=== PATIENT | female | born 1990 | race African-American/Black ===

== ENCOUNTER 2019-06-15 08:01 | Inpatient (IN) | payer OTHER ==
[2019-06-15] MEDS ORDERED: hydrALAZINE 20 MG/ML VIAL ONE (08:23)
[2019-06-15] MEDS ORDERED: hydrALAZINE 20 MG/ML VIAL SLOW IVP PRN (08:25)
[2019-06-15] MEDS ORDERED: Promethazine HCl 25 MG/ML VIAL IM PRN ×2 (08:25→11:11)
[2019-06-15] MEDS ORDERED: Butorphanol Tartrate 1 MG/ML VIAL SLOW IVP PRN (08:25)
[2019-06-15] MEDS ORDERED: Ondansetron PF 4 MG/2 ML Vial IVP PRN ×2 (08:25→11:11)
[2019-06-15] MEDS ORDERED: Calcium Gluc 4.6 MEQ/10 ML (100 MG/ML) SLOW IVP PRN (08:25)
[2019-06-15] MEDS ORDERED: Magnesium Sulfate 20 GM/WATER 500 ML BAG IVPB SCH (08:30)
[2019-06-15] MEDS ORDERED: Lactated Ringer's 1,000 ML IV SCH (08:30)
--- NOTE | 2019-06-15 08:36 | PDOC.LDHP ---
Labor and Delivery H&P Chief complaint: contractions HPI: 29 yo BF transferred from [place] with elevated BP, tx. with Apresoline prior to transfer. PNC x 4 visits in [place], only 4 visits total. Denies SROM or bleeding. Current gestational age (weeks): 39 Due date: 06/20/18 Dating criteria: second trimester ultrasound Grav: 2 Para: 1 OB History Details: Past OB hx. c/w C?s at 32 weeks for PIH. Current complications: other (PNC as above) Abnormal US findings: No Past Medical History: HTN when Current medications: pre- vitamins Previous surgical history: other (unknown C/S scar, ACL) Allergies/Adverse Reactions: Allergies Allergy/AdvReac Type Severity Reaction Status Date / Time No Known Allergies Allergy Unverified 03/02/13 09:48 - Physical Exam Abnormal vital signs: 190/106 General: NAD Heart: RRR Lungs: CTAB Abdomen: gravid Extremeties: trace edema FHT: category 1 Harris contractions every: UCs q 5-7 mins - OB Labs Blood type: unknown RH: unknown Antibody Screen: unknown GBS: unknown - Assessment L&D Assessment: term patient in labor (limited PNC) - Plan Plan: admit to L&D, magnesium for seizure prophylaxis, other (Will obtain USG for EFW Apresoline/Labetalol for BP control May require delivery)
[2019-06-15] MEDS: Lactated Ringer's 1,000 ML IV SCH (08:48)
[2019-06-15] MEDS: Labetalol HCl 100 MG/20 ML VIAL SLOW IVP SCH ×3 (09:00→14:13)
[2019-06-15 09:11] LABS: Amphetamine Detected (NotDetected); Cocaine Metabolite Screen Not Detected (NotDetected); Medtox Reader # READER 1; Methamphetamine Detected (NotDetected); Opiate Screen Not Detected (NotDetected); Phencyclidine (PCP) Not Detected (NotDetected); THC/Cannabinoid Screen Detected (NotDetected)
[2019-06-15 09:12] LABS: Barbiturates Screen Not Detected (NotDetected); Benzodiazepine Screen Not Detected (NotDetected); Medtox Control Line Valid? VALID (VALID); Methadone Not Detected (NotDetected); Oxycodone Screen Not Detected (NotDetected); Tricyclic Screen Not Detected (NotDetected)
[2019-06-15] MEDS ORDERED: Ondansetron PF 4 MG/2 ML Vial ONE (09:23)
[2019-06-15] MEDS ORDERED: Metoclopramide HCl 10 MG/2 ML VIAL ONE (09:23)
[2019-06-15] MEDS ORDERED: Oxytocin 10 UNITS/ML VIAL ONE (09:23)
[2019-06-15] MEDS ORDERED: Fentanyl 100 MCG/2 ML VIAL ONE (09:23)
[2019-06-15] MEDS ORDERED: PHENYLEPHRINE-NS 100 MCG/ML 10 ML SYRINGE ONE (09:23)
[2019-06-15] MEDS ORDERED: MORPHINE 5 MG/10 ML PF VIAL ONE (09:23)
[2019-06-15 09:48] VITALS: BMI 27.1
[2019-06-15 09:58] LABS: HBSAB Concentration 271.02 mIU/mL; Hep B Surf AB Reactive (NonReactive)
[2019-06-15 10:03] LABS: Syphilis Antibody Nonreactive (Nonreactive); Syphilis Antibody Index 0.04 S/CO (<1.00 Non-Reactive)
--- NOTE | 2019-06-15 10:16 | ULT ---
LIMITED OBSTETRICAL ULTRASOUND: HISTORY: History of term IUP with limited care. FINDINGS: Limited images demonstrate a live intrauterine gestation in vertex presentation. Placenta is anterior in location without overt evidence of previa. The KASIA is markedly diminished. The average gestational age by ultrasound based on biometrics is 34 weeks 1 day with an estimat ed due date of 07/26/2019. Clinical age is 39 weeks 2 days. Estimated due date is 06/20/2019. Estimated weight is 5 lbs 2 oz, plus or minus 12 oz (2333 g, plus or minus 345 g). Biparietal diameter is 8.66 cm, giving an estimated gestational age of 35 weeks 0 days. Head circumference is 29.87 cm, giving an estimated gestational age of 33 weeks 1 day. Abdominal circumference is 29.74 cm, giving an estimated gestational age of 33 weeks 5 days. Femoral length was 6.74 cm, giving an estimated gestational age of 34 weeks 5 days. IMPRESSION: 1. Single live intrauterine gestation. 2. Size and dates as above. 3. Oligohydramnios. 4. Dr. Garcia was bedside during the examination with findings reported by the fuel technician. POS: TPC
[2019-06-15 10:17] LABS: Bilirubin Negative (Negative); Blood, Urine 1+ (Negative); Clarity Turbid (Clear); Glucose, Urine (Dipstick) Normal (Negative); Leukocyte 75 Leu/uL (Negative); Nitrite Negative (Negative); Protein, Urine (Dipstick) 100 mg/dL (Neg-Trace); RBC/HPF 0-3 HPF (0-3); Urobilinogen Normal mg/dL (Less than 2); WBC/HPF 0-3 HPF (0-3)
[2019-06-15 10:32] LABS: Bacteria/HPF 1+ HPF (None Seen)
[2019-06-15 10:44] LABS: Analyzer IN Cardio OR; Base Excess (BEa) -3.2 mEq/L (-2.0 to +3.0)
[2019-06-15] MEDS ORDERED: Atropine Sulfate 0.4 mg/1 ml Vial ONE (10:49)
[2019-06-15] MEDS: Magnesium Sulfate 20 GM in Dextrose 5% in Water 460 ML IV SCH ×2 (11:00→17:33)
[2019-06-15] MEDS ORDERED: Misoprostol 200 MCG TAB PR PRN (11:01)
[2019-06-15] MEDS ORDERED: Lanolin Ointment 7 GM TUBE TOP PRN (11:01)
[2019-06-15] MEDS ORDERED: Bisacodyl 10 MG SUPP PR PRN (11:01)
[2019-06-15] MEDS ORDERED: L&D-Morphine 4 MG/ML VIAL SLOW IVP PRN (11:11)
[2019-06-15] MEDS ORDERED: diphenhydrAMINE 50 MG/ML VIAL IVP PRN (11:11)
[2019-06-15] MEDS ORDERED: Ketorolac Tromethamine 30 MG/ML VIAL IVP PRN (11:11)
[2019-06-15] MEDS ORDERED: Promethazine HCl 25 MG SUPP PR PRN (11:11)
[2019-06-15] MEDS ORDERED: HYDROmorphone 2 MG/ML VIAL SLOW IVP PRN (11:11)
[2019-06-15] MEDS ORDERED: Naloxone HCl 0.4 mg/ml Vial IV PRN (11:11)
[2019-06-15] MEDS ORDERED: Naloxone HCl 0.4 mg/ml Vial IVP PRN ×2 (11:11)
[2019-06-15] MEDS ORDERED: Meperidine HCl/PF 25 MG/ML VIAL SLOW IVP PRN (11:11)
[2019-06-15] MEDS ORDERED: Ondansetron HCl/PF 4 MG/2 ML Vial IVP PRN (11:11)
[2019-06-15] MEDS ORDERED: Communication Order-Pharmacy FS SCH (11:15)
[2019-06-15] MEDS ORDERED: Ketorolac Tromethamine 30 MG/ML VIAL IVP SCH (11:15)
[2019-06-15] MEDS ORDERED: NS / Oxytocin 40 units/1000ml 1,000 ML ONE (12:23)
--- NOTE | 2019-06-15 13:55 | OP ---
DATE OF PROCEDURE: 06/15/2019 SURGEON: Chencho Garcia MD COMPENSATION ADJUSTER SURGEON: Liliana Martines MD PREOPERATIVE DIAGNOSES: 1. Term intrauterine . 2. Severe preeclampsia with oligohydramnios. 3. Previous section. 4. Positive urine drug screen. POSTOPERATIVE DIAGNOSES: 1. Term intrauterine . 2. Severe preeclampsia with oligohydramnios. 3. Previous section. 4. Positive urine drug screen. PROCEDURE PERFORMED: Repeat low-segment transverse section via Pfannenstiel incision. PROPHYLAXIS: 2 g Ancef prior to incision. ESTIMATED BLOOD LOSS: 600 mL. QBL pending. COMPLICATIONS: None. FINDINGS: 1. Viable male , weight 5 pounds 4 ounces. Apgars 8 and 9, found in the cephalic presentation. 2. Normal uterus, tubes, and ovaries noted. TECHNIQUE IN DETAIL: After good spinal anesthesia was achieved, the patient was prepped and draped in usual sterile fashion in the supine position with leftward tilt. A transverse incision was made above the symphysis pubis in the area of a previous scar and the abdomen was entered in layers. The uterus was identified , and a bladder flap was created in the peritoneum. A transverse incision was made across the lower uterine segment and was extended bluntly. The fetus was found in the cephalic presentation and was delivered. No amniotic fluid was seen. The cord was clamped and cut, and the baby was handed to the waiting pediatric team. Cord gases and cord blood were then obtained. The placenta was manually removed and the inside of the uterus was curetted with a dry lap. The uterine incision was closed using a running locking suture of Monocryl. Good hemostasis was noted with single-layer closure. The uterus was replaced in the abdominal cavity and the pelvic gutters were cleared of all clots and debris. The uterus was replaced in the abdominal cavity and the incision was again reviewed and noted to be hemostatic. The rectus muscles were made dry using Bovie coagulation technique and the fascia was closed using 2 sutures of PDS, brought laterally to the midline in an alternating running locking fashion. The subcutaneous tissue was thoroughly irrigated and made dry using Bovie coagulation technique. The skin was closed with metal brendon. Sponge, lap, and needle counts were correct. The patient tolerated the procedure well and was taken to the recovery room in good condition. Job ID: [id number] [facility]
[2019-06-15 14:45] LABS: HBSAg Index 0.15 S/CO (0-0.99); Hep B Surf Ag Non-Reactive S/CO (NonReactive)
[2019-06-15] MEDS ORDERED: Ketorolac Tromethamine 30 MG/ML VIAL ONE (15:28)
[2019-06-15] MEDS: Ibuprofen 800 MG TAB PO SCH (18:04)
[2019-06-16] MEDS: hydrALAZINE 20 MG/ML VIAL SLOW IVP PRN ×2 (00:48→00:49)
--- NOTE | 2019-06-16 01:14 | PDOC.PP ---
Post Progress Note Post Day #: POD1 Subjective: Denies CONNOLLY or blurry vision. Elevated BPs tx. with Apresline x2. PO intake tolerated: yes Flatus: no Ambulation: no Vital Signs (12 hours) Temp Pulse 06/16/19 00:48 55 L 06/15/19 16:00 98.2 F 06/15/19 15:59 55 L 06/15/19 14:13 55 L Weight Weight 83.461 kg - Physical Examination General: NAD Respiratory: non-labored breathing Abdominal: no distention Skin: CS incision dry & intact Psychiatric: normal affect Additional Labs: Post Labs Blood Type O POSITIVE 06/15/19 09:52 Hep Bs Antigen Non-Reactive S/CO (NonReactive) 06/15/19 09:00 - Assessment/Plan Cont. Mg x 24 hrs delivered. Will add Procardia 30 mg XL now and observe.
[2019-06-16] MEDS ORDERED: NIFEdipine XL 30 MG TAB PO SCH (01:30)
[2019-06-16] MEDS: Labetalol HCl 100 MG/20 ML VIAL SLOW IVP SCH (02:55)
[2019-06-16] MEDS: Magnesium Sulfate 20 GM in Dextrose 5% in Water 460 ML IV SCH (04:50)
[2019-06-16 07:43] LABS: Hemoglobin 12.7 g/dL (12.0-16.0); Mean Corpuscular HGB CONC 32.9 g/dL (32.0-36.0); Mean Corpuscular Hemoglobin 26.3 pg (27.0-31.0); Mean Platelet Volume 10.4 fL (7.4-10.4); Platelet Count 173 thou/uL (130-400); RBC Distribution Width 13.9 % (11.5-14.5); Red Blood Cell (RBC) Count 4.84 mill/uL (4.20-5.40)
[2019-06-16] MEDS: Ibuprofen 800 MG TAB PO SCH ×4 (08:12→22:50)
[2019-06-16] MEDS ORDERED: Adacel (T-DAP) 0.5 ML SYRINGE IM ONE (09:00)
[2019-06-16] MEDS ORDERED: FLU VACC QS2019-20(6MOS UP)/PF 60 MCG/0.5 ML SYRINGE IM ONE (10:15)
[2019-06-16] MEDS: Lactated Ringer's 1,000 ML IV SCH ×3 (11:18→18:03)
[2019-06-16] MEDS: Docusate 100 MG CAP PO SCH ×3 (11:19→22:50)
[2019-06-16] MEDS: Ferrous Sulfate 325 MG TAB PO SCH (11:20)
[2019-06-16] MEDS: Polyethylene Glycol 3350 17 GM Packet PO SCH (11:21)
[2019-06-16] MEDS ORDERED: HYDROcodone/Acetaminophen 5/325 mg Tablet PO PRN (16:00)
[2019-06-16] MEDS: Prenatal Vitamin 1 TAB PO SCH (18:03)
[2019-06-17] MEDS: HYDROcodone/Acetaminophen 5/325 mg Tablet PO PRN ×2 (00:09→14:59)
[2019-06-17] MEDS: Lactated Ringer's 1,000 ML IV SCH ×3 (00:11→12:00)
--- NOTE | 2019-06-17 03:52 | PDOC.PP ---
Post Progress Note Post Day #: 2 Subjective: Denies headaches, vision changes. PO intake tolerated: yes Flatus: yes Ambulation: yes Vital Signs (12 hours) Temp Pulse Resp BP Pulse Ox 06/17/19 00:04 98.3 F 92 18 138/75 06/16/19 20:00 99.2 F 93 18 143/82 H 98 06/16/19 18:35 98.6 F 111 H 20 136/83 Weight Weight 83.461 kg - Physical Examination General: NAD Cardiovascular: no m/r/g, RRR Respiratory: clear to auscultation bilaterally, non-labored breathing Abdominal: appropriately TTP Skin: CS incision dry & intact Neurological: no gross focal deficits Psychiatric: A&Ox3 Result Diagrams: 06/16/19 07:33 Additional Labs: Post Labs Blood Type O POSITIVE 06/15/19 09:52 Hep Bs Antigen Non-Reactive S/CO (NonReactive) 06/15/19 09:00 Rubella IgG Antibody 3.79 index (Immune >0.99) 06/15/19 09:00 (1) Pre-eclampsia, severe Code(s): O14.10 - SEVERE PRE-ECLAMPSIA, UNSPECIFIED TRIMESTER Status: Acute (2) Oligohydramnios Code(s): O41.00X0 - OLIGOHYDRAMNIOS, UNSP TRIMESTER, NOT APPLICABLE OR UNSP Status: Acute (3) S/P section Code(s): Z98.891 - HISTORY OF UTERINE SCAR FROM PREVIOUS SURGERY Status: Acute (4) Amphetamine abuse Code(s): F15.10 - OTHER STIMULANT ABUSE, UNCOMPLICATED Status: Acute (5) Cocaine abuse Code(s): F14.10 - COCAINE ABUSE, UNCOMPLICATED Status: Acute (6) Marijuana abuse Code(s): F12.10 - CANNABIS ABUSE, UNCOMPLICATED Status: Acute - Assessment/Plan 29 yo s/p repeat LTCS 2/2 preE with severe bps, olihydramnios, and cocaine abuse /amphetamine abuse/marijuana abuse. POD2 1.)sIUP, delivered-via repeat CS. Continue routine care 2.)PreE with severe range blood pressures- bps 130s-140s/70-80s, however most recent 157/83. Off magnesium since 1600 on 06/16. Scheduled to get procardia this am. It does not look like she received procardia yesterday. Will continue to monitor bps closely for 24 hours off magnesium. 3.)Drug abuse-amphetamines, cocaine, and marijuana. CM/CPS consult pending. Dispo: continue to monitor bps today and await CM consult; consider d/c tomorrow. Cliff Calvert MD, PGY-3
[2019-06-17] MEDS: Ibuprofen 800 MG TAB PO SCH ×2 (06:25→15:00)
[2019-06-17] MEDS ORDERED: Sodium Chloride 0.9% 10 ML ONE (08:59)
[2019-06-17] MEDS: hydrALAZINE 20 MG/ML VIAL SLOW IVP PRN (09:04)
[2019-06-17] MEDS: NIFEdipine XL 30 MG TAB PO SCH ×2 (09:05→09:09)
[2019-06-17] MEDS: Ferrous Sulfate 325 MG TAB PO SCH (09:06)
[2019-06-17] MEDS: Docusate 100 MG CAP PO SCH (09:07)
[2019-06-17] MEDS: Polyethylene Glycol 3350 17 GM Packet PO SCH (09:07)
[2019-06-17] MEDS: Prenatal Vitamin 1 TAB PO SCH (09:08)
--- NOTE | 2019-06-17 10:52 | PDOC.EVN ---
Event Note - Event Note Event Note: Just called by PP nurse...patients BP was 180/101. She has receivedapresoline earlier this AM To L&D for restart of Mag Sulfate; recheck PI labs. HX pos UTox
[2019-06-17] MEDS ORDERED: Calcium Gluconate 4.6 MEQ in Sodium Chloride 0.9% 100 ML IVPB SCH (10:53)
[2019-06-17 11:09] LABS: #Lymphocytes 1.8 thou/uL (1.20-3.40); #Monocytes 0.5 thou/uL (0.11-0.59); #Neutrophils 9.5 thou/uL (1.40-6.50); %Basophils 0.3 % (0.0-1.0); %Eosinophils 0.2 % (0.0-10.0); %Lymphocytes 15.4 % (21.0-51.0); %Monocytes 4.4 % (0.0-10.0); %Neutrophils 79.7 % (42.0-75.0); Hemoglobin 12.8 g/dL (12.0-16.0); Mean Corpuscular HGB CONC 33.1 g/dL (32.0-36.0); Mean Corpuscular Hemoglobin 26.7 pg (27.0-31.0); Mean Corpuscular Volume 80.4 fL (78.0-98.0); Mean Platelet Volume 9.7 fL (7.4-10.4); Platelet Count 164 thou/uL (130-400); RBC Distribution Width 14.2 % (11.5-14.5); Red Blood Cell (RBC) Count 4.82 mill/uL (4.20-5.40); White Blood Cell (WBC) Count 11.9 thou/uL (4.8-10.8)
[2019-06-17] MEDS ORDERED: Calcium Gluconate 4.6 MEQ in Sodium Chloride 0.9% 100 ML IVPB PRN (11:26)
[2019-06-17] MEDS ORDERED: Magnesium Sulfate 20 GM/WATER 500 ML BAG IVPB SCH (11:30)
[2019-06-17] MEDS ORDERED: Magnesium Sulfate 20 GM in Dextrose 5% in Water 460 ML IV SCH ×2 (11:32→11:51)
[2019-06-17 11:33] LABS: ALT (SGPT) 16 U/L (8-55); AST (SGOT) 23 U/L (5-34); Albumin 3.2 g/dL (3.5-5.0); Alkaline Phosphatase 208 U/L (40-110); Anion Gap 11 mmol/L (10-20); BUN (Urea Nitrogen) 6 mg/dL (7.0-18.7); Bilirubin, Total 0.4 mg/dL (0.2-1.2); Calc. Creatinine Clearance 165 mL/min (70-130); Calcium 9.4 mg/dL (7.8-10.44); Carbon Dioxide 22 mmol/L (22-29); Chloride 109 mmol/L (98-107); Estimated GFR-MDRD Greater than 90; Globulin 3.3 g/dL (2.4-3.5); Glucose 92 mg/dL (70-105); Magnesium 2.5 mg/dL (1.6-2.6); Protein, Total 6.5 g/dL (6.0-8.3); Sodium 138 mmol/L (136-145)
[2019-06-17] MEDS ORDERED: Labetalol HCl 100 MG/20 ML VIAL ONE (11:49)
--- NOTE | 2019-06-17 11:49 | PDOC.EVN ---
Event Note - Event Note Event Note: Patient now in APU1...BPs with systolic 160-170s. I have orderd Labetolol 20mg SIVP X 1 now
--- NOTE | 2019-06-17 11:51 | PDOC.EVN ---
Event Note - Event Note Event Note: CBC and CMP wnl
[2019-06-17] MEDS ORDERED: Labetalol HCl 100 MG/20 ML VIAL SLOW IVP SCH ×3 (12:00→23:59)
--- NOTE | 2019-06-17 14:58 | PDOC.EVN ---
Event Note - Event Note Event Note: I have seen patient at bedside. BP 160 systolic...ok for next labetolol IV dose at 40mg. Follow
--- NOTE | 2019-06-17 23:46 | PDOC.EVN ---
Event Note - Event Note Event Note: Patient in APU1...called for BP systolic of 160-170. I have ordered another 40mg labetolol: Total labetolol doses are 20/40 and now 40 again. We will change to hydralazine after this prn
[2019-06-18] MEDS: hydrALAZINE 20 MG/ML VIAL SLOW IVP PRN (04:05)
--- NOTE | 2019-06-18 06:36 | PDOC.PP ---
Post Progress Note Post Day #: 3 Subjective: fells well PO intake tolerated: yes Flatus: yes Ambulation: yes Weight Weight 184 lb Vitals reviewed in L&D system: had to receive apresoline this AM for systolic over 160-170 (10mg). - Physical Examination Abdominal: lochia, no distention, appropriately TTP Extremities: negative homans (B) Skin: CS incision dry & intact (brendon in use) Neurological: no gross focal deficits Psychiatric: A&Ox3, normal affect Result Diagrams: 06/17/19 11:00 06/17/19 11:00 Additional Labs: Post Labs Blood Type O POSITIVE 06/15/19 09:52 Hep Bs Antigen Non-Reactive S/CO (NonReactive) 06/15/19 09:00 Rubella IgG Antibody 3.79 index (Immune >0.99) 06/15/19 09:00 (1) Amphetamine abuse Code(s): F15.10 - OTHER STIMULANT ABUSE, UNCOMPLICATED Status: Acute (2) Pre-eclampsia, severe Code(s): O14.10 - SEVERE PRE-ECLAMPSIA, UNSPECIFIED TRIMESTER Status: Acute (3) S/P section Code(s): Z98.891 - HISTORY OF UTERINE SCAR FROM PREVIOUS SURGERY Status: Acute - Assessment/Plan 1. Pos UTox: Case management to follow up 2. Post CS-POD3 but still with BP elevations. Unclear if this is PreE or drug effect in system. 3. BPs: increase procardia this am from 30mg XL to 60mg po at 0900. Mag until 1300
[2019-06-18] MEDS: NIFEdipine XL 60 MG TAB PO SCH (07:35)
--- NOTE | 2019-06-18 09:52 | PDOC.EVN ---
Event Note - Event Note Event Note: POD3 Put back on Mg but remains with labile BPs despite multiple doses of Labetalol and Apresoline as well as Procardia XL. Will consult Medicine Hospitalist Service for BP control.
[2019-06-18] MEDS ORDERED: cloNIDine 0.1 MG TAB PO PRN ×2 (10:24→14:57)
[2019-06-18] MEDS ORDERED: hydrALAZINE 20 MG/ML VIAL SLOW IVP PRN ×2 (10:24→14:58)
--- NOTE | 2019-06-18 11:40 | CON ---
DATE OF CONSULTATION: PRIMARY CARE PHYSICIAN: Dr. Ricci. REASON FOR ADMISSION: delivery. REASON FOR CONSULTATION: Blood pressure management. HISTORY OF PRESENT ILLNESS: Ms. Emmanuel is a pleasant 29-year-old female, who has a history of hypertension during . This is her second delivery. She states that with her first baby, she did have hypertension during and had to stay in the hospital for 3 days post delivery due to an elevated blood pressure. She says that she was on blood pressure medication for about a month and then the prescription ran out, but she says she "didn't need the medication anymore." She says she has not been on blood pressure medications since then. She was admitted again for a delivery and post delivery, she has been hypertensive with blood pressures recorded as high as 190 systolic and since then it has been in the 160s and 170s. She has been placed on IV magnesium as well as labetalol p.r.n. She was also started on Procardia, which has since been increased from 30 to 60 mg. Her blood pressure is still running in the 160s and as a result, we were consulted to aid with blood pressure management. Currently, the patient says that she has had a little bit of a headache off and on, but denies any visual changes such as blurred vision or double vision. She denies any chest pain or shortness of breath. No nausea, no vomiting. She denies any lower extremity edema. REVIEW OF SYSTEMS: All systems are reviewed and are negative except for that mentioned in the history of present illness. PAST MEDICAL HISTORY: Significant for hypertension as well as hypertension in . ALLERGIES: LISINOPRIL. PAST SURGICAL HISTORY: She has had x2 and ACL repair on her right leg. SOCIAL HISTORY: She says she smokes about half-a-pack a day for the last 5 years. Denies any drug use. Denies any alcohol use. She is single and this is her second child. FAMILY HISTORY: Significant for hypertension in both parents as well as cancer and congestive heart failure. MEDICATIONS: Include vitamins. PHYSICAL EXAMINATION: GENERAL: She is alert and oriented. She appears to be in no acute distress. VITAL SIGNS: Blood pressure is 163/97, heart rate is in the 90s, respiratory rate of 16, and she is afebrile. HEENT: Pupils are equal, round, and reactive. Extraocular muscles are intact. Sclerae anicteric. Throat; no erythema, no exudates. NECK: No adenopathy. No bruits. LUNGS: Clear to auscultation. There is no wheezing, no rales, no rhonchi. CARDIOVASCULAR: She has a normal S1, S2. There is no S3 or S4. No murmurs, clicks, or rubs. ABDOMEN: Soft. She has some mild diffuse tenderness. There is no rebound, no guarding, no organomegaly. EXTREMITIES: There is no clubbing or cyanosis. No edema. No calf tenderness. No joint effusions. NEUROLOGIC: Grossly nonfocal. Muscle strength is 5/5 in both her upper and lower extremities. Cranial nerves 2 through 12 are intact. SKIN AND INTEGUMENT: No skin changes. No rash. LABORATORY DATA: She had blood work done on the and white blood cell count is 11.9, hemoglobin is 12.8, hematocrit is 38.8, and platelet count is 164. Sodium 138, potassium 4.0, chloride is 109, CO2 is 22, BUN is 6, creatinine 0.65, glucose is 92. Liver function tests are normal. AST is 23, ALT is 16, alkaline phosphatase is slightly elevated at 208. ASSESSMENT AND PLAN: This is a pleasant 29-year-old female, who is developing hypertension post . She has been refractory to magnesium as well as Procardia and hydralazine as needed. In discussion with the patient, she said labetalol orally has worked well for her in the past and given that she is relatively tachycardic, we will go ahead and switch her to scheduled labetalol starting at [address] her on hydralazine IV as needed as well as clonidine. We will continue the Procardia at 60 mg daily and monitor her, and then hopefully, her blood pressure will stabilize. We can titrate the labetalol up to 400 mg twice daily or even 3 times daily as needed. We will be happy to follow along with you. Job ID: [id number]
[2019-06-18] MEDS: Labetalol 100 MG TAB PO SCH ×2 (14:43→20:28)
[2019-06-18] MEDS: Ibuprofen 800 MG TAB PO SCH (14:45)
[2019-06-18] MEDS: HYDROcodone/Acetaminophen 5/325 mg Tablet PO PRN (19:38)
[2019-06-18] MEDS: Docusate 100 MG CAP PO SCH ×3 (20:28→20:30)
[2019-06-18] MEDS: Polyethylene Glycol 3350 17 GM Packet PO SCH (21:12)
[2019-06-18] MEDS: Ferrous Sulfate 325 MG TAB PO SCH (21:12)
--- NOTE | 2019-06-19 06:07 | PDOC.PP ---
Post Progress Note Post Day #: POD4 Subjective: No c/o this AM. PO intake tolerated: yes Flatus: yes Ambulation: yes Vital Signs (12 hours) Pulse BP 06/18/19 21:00 164/99 H 06/18/19 20:28 100 164/99 H Weight Weight 83.461 kg - Physical Examination General: NAD Respiratory: non-labored breathing Abdominal: no distention Psychiatric: normal affect Result Diagrams: 06/17/19 11:00 06/17/19 11:00 Additional Labs: Post Labs Blood Type O POSITIVE 06/15/19 09:52 Hep Bs Antigen Non-Reactive S/CO (NonReactive) 06/15/19 09:00 Rubella IgG Antibody 3.79 index (Immune >0.99) 06/15/19 09:00 - Assessment/Plan BPs iimproved this AM, currenetly on Procardia XL 60 qD and Labetalol 200 TID. DC Mg. Medicine consult greatly appreciated. Watch today on present BP regimen.
[2019-06-19] MEDS ORDERED: Hydrochlorothiazide 25 MG TAB PO SCH (07:45)
[2019-06-19] MEDS: HYDROcodone/Acetaminophen 5/325 mg Tablet PO PRN ×3 (08:56→20:17)
[2019-06-19] MEDS: Prenatal Vitamin 1 TAB PO SCH ×2 (08:57→10:15)
[2019-06-19] MEDS: NIFEdipine XL 60 MG TAB PO SCH (08:57)
[2019-06-19] MEDS: Docusate 100 MG CAP PO SCH ×2 (08:58→21:15)
[2019-06-19] MEDS: Polyethylene Glycol 3350 17 GM Packet PO SCH (08:58)
[2019-06-19] MEDS: Ferrous Sulfate 325 MG TAB PO SCH (08:58)
[2019-06-19] MEDS ORDERED: Labetalol 100 MG TAB PO SCH ×2 (09:00→09:30)
[2019-06-19] MEDS: Ibuprofen 800 MG TAB PO SCH ×6 (09:03→21:20)
--- NOTE | 2019-06-19 09:31 | PDOC.HOSPP ---
- Subjective Encounter Date: 06/19/19 Encounter Time: 09:29 Subjective: Ms. Emmanuel was seen today in follow-up of elevated blood pressure. She does not have any complaints today. She denies headache or feeling short of breath. Her blood pressure this morning was 135/95 with a heart rate 92. - Objective Vital Signs & Weight: Vital Signs (12 hours) BP 06/19/19 08:57 164/99 H Weight Weight 184 lb I&O: 06/18/19 06/19/19 06/20/19 06:59 06:59 06:59 Intake Total 1100 Output Total 3300 Balance -2200 Result Diagrams: 06/17/19 11:00 06/17/19 11:00 Hospitalist ROS - Medication Medications: Active Medications Generic Name Dose Route Start Last Admin Trade Name Freq PRN Reason Stop Dose Admin Hydrocodone Bitart/Acetaminophen 1 tab 06/16/19 16:00 06/19/19 08:56 Richardson 5/325 PO 1 tab Q4H PRN Administration Moderate Pain (4-6) Hydrocodone Bitart/Acetaminophen 2 tab 06/16/19 16:00 06/16/19 16:25 Richardson 5/325 PO 2 tab Q4H PRN Administration Severe Pain (7-10) Clonidine 0.1 mg 06/18/19 14:57 06/18/19 21:00 Catapres PO 0.1 mg Q4H PRN Administration SBP GREATER THAN 160 Docusate Sodium 100 mg 06/15/19 21:00 06/19/19 08:58 Colace PO 100 mg BID MORALES Administration Ferrous Sulfate 325 mg 06/16/19 08:00 06/19/19 08:58 Feosol PO Not Given QAM-WM MORALES Hydrochlorothiazide 25 mg 06/19/19 07:45 06/19/19 09:03 Hydrochlorothiazide PO 06/19/19 09:45 25 mg NOW MORALES Administration Ibuprofen 400 mg 06/18/19 14:00 06/19/19 09:09 Motrin PO 400 mg Q8HR MORALES Administration Nifedipine 60 mg 06/18/19 09:00 06/19/19 08:57 Procardia Xl PO 60 mg DAILY MORALES Administration Polyethylene Glycol 17 gm 06/16/19 09:00 06/19/19 08:58 Miralax PO 17 gm DAILY MORALES Administration Multivit/Folic Acid/Iron 1 tab 06/16/19 09:00 06/19/19 08:57 Vitamin PO 1 tab DAILY MORALES Administration - Exam Eye: PERRL, anicteric sclera Heart: RRR, no murmur, no gallops, no rubs, normal peripheral pulses Respiratory: CTAB, no wheezes, no rales, no ronchi, normal chest expansion, no tachypnea Gastrointestinal: soft, non-tender, non-distended, normal bowel sounds, no palpable masses, no hepatomegaly Extremities: no cyanosis, no clubbing, no edema Psychiatric: normal affect, A&O x 3 Hosp A/P (1) Hypertension Code(s): I10 - ESSENTIAL (PRIMARY) HYPERTENSION Status: Chronic (2) S/P section Code(s): Z98.891 - HISTORY OF UTERINE SCAR FROM PREVIOUS SURGERY Status: Acute - Plan * HTN- blood pressure is actually better than what is recorded in [employer]. It is unusual that the same blood pressure reading was noted in [employer] 4 times in row. This morning it was 135/95. * Will continue Labetalol at 200mg TID, and Procardia XL 60mg, with the Hydralazine as needed. * HTCZ was given as a one time dose, in the event she may be a bit volume overloaded * Continue to monitor
[2019-06-19] MEDS: Lactated Ringer's 1,000 ML IV SCH ×2 (10:10→10:11)
[2019-06-19] MEDS: Labetalol 100 MG TAB PO SCH ×2 (14:33→21:16)
--- NOTE | 2019-06-20 05:34 | PDOC.EVN ---
Event Note - Event Note Event Note: OBGYN distance education director POD 5 Patient seen OK for DC to home See Dictation completed by me
[2019-06-20] MEDS: Ibuprofen 200 MG TAB PO SCH ×2 (05:53→14:59)
--- NOTE | 2019-06-20 05:58 | DIS ---
DATE OF ADMISSION: 06/15/2019 DATE OF DISCHARGE: 06/20/2019 PRINCIPAL DIAGNOSES: 1. Oligohydramnios. 2. Severe range preeclampsia. 3. History of illicit drug use. 4. Severe range hypertension. PROCEDURES: 1. section (repeat low segment transverse). 2. Intravenous magnesium sulfate. SERVICES CONSULTED: Internal Medicine for blood pressure control. HOSPITAL COURSE: In brief, this patient was admitted by Dr. Garcia on-call on 06/15/2019 as a patient who is a 29-year-old transferred from [place] for elevated blood pressures. Apresoline was given prior to transfer. She had care in [place], but only 4 visits total. By her dates, she was 39 weeks, previous . Urine toxicology was positive for amphetamines and methamphetamines and cannabinoids. For full details of her , please turn to the operative dictation dated that date. Postop, the patient required magnesium sulfate and severe/urgent antihypertensive therapy on various occasions. Blood pressure oral medications were adjusted with the final regimen including Procardia 60 mg XL daily and labetalol [address] Ajay Parra with Internal Medicine provided a consultation on 06/18/2019 and recommended this medication adjustment. I evaluated the patient on June 20, 2019 at 0530 in the morning and found her to be in no acute distress. Incision was clean, dry, and intact with brendon in place. DISCHARGE PLAN: We will send the patient home today with nifedipine and labetalol as described. Ibuprofen will also be given for pain p.r.n. She was told to follow up this Tuesday at [facility] [place] for staple removal and blood pressure recheck. Case management has also evaluated the patient and safety plan is in place. Job ID: [id number]
[2019-06-20 06:58] LABS: Anion Gap 11 mmol/L (10-20); BUN (Urea Nitrogen) 10 mg/dL (7.0-18.7); Calc. Creatinine Clearance 176 mL/min (70-130); Calcium 9.2 mg/dL (7.8-10.44); Carbon Dioxide 25 mmol/L (22-29); Chloride 107 mmol/L (98-107); Estimated GFR-MDRD Greater than 90; Glucose 85 mg/dL (70-105); Potassium 3.5 mmol/L (3.5-5.1); Sodium 139 mmol/L (136-145)
[2019-06-20] MEDS: Labetalol 100 MG TAB PO SCH ×2 (11:44→16:40)
[2019-06-20] MEDS: NIFEdipine XL 60 MG TAB PO SCH (11:44)
[2019-06-20] MEDS: Docusate 100 MG CAP PO SCH (11:44)
[2019-06-20] MEDS: Prenatal Vitamin 1 TAB PO SCH (11:44)
[2019-06-20] MEDS: Ferrous Sulfate 325 MG TAB PO SCH (11:45)
[2019-06-20] MEDS: Polyethylene Glycol 3350 17 GM Packet PO SCH (11:45)
[2019-06-20 11:49] VITALS: BP 167/91
[2019-06-20 12:07] VITALS: TEMP 98.5
[2019-06-20] MEDS: HYDROcodone/Acetaminophen 5/325 mg Tablet PO PRN (13:40)
== END 2019-06-20 17:08 | disposition home or self-care (01) | DRG 787 ==
LOC: L&D/OP 08:01 → L&D 08:51 → 3SW 06-16 18:37 → L&D 06-17 11:19 → 3SW 06-19 08:42
PROVIDERS: ADMIT Family Medicine; ATTEND Family Medicine
PROC: 10D00Z1 Extraction of Products of Conception, Low, Open Approach (ICD-10-PCS; principal; 2019-06-15)
PROC: 3E0234Z Introduction of Serum, Toxoid and Vaccine into Muscle, Percutaneous Approach (ICD-10-PCS; 2019-06-20)
PROC: 3E02340 Introduction of Influenza Vaccine into Muscle, Percutaneous Approach (ICD-10-PCS; 2019-06-20)
DX: O14.14 Severe pre-eclampsia complicating childbirth (principal); O41.03X0 Oligohydramnios, third trimester, not applicable or unspecified; Z3A.39 39 weeks gestation of pregnancy; Z37.0 Single live birth; O34.211 Maternal care for low transverse scar from previous cesarean delivery; F15.10 Other stimulant abuse, uncomplicated; F14.10 Cocaine abuse, uncomplicated; F12.10 Cannabis abuse, uncomplicated; O99.323 Drug use complicating pregnancy, third trimester; F17.200 Nicotine dependence, unspecified, uncomplicated; O99.333 Smoking (tobacco) complicating pregnancy, third trimester; Z88.8 Allergy status to other drugs, medicaments and biological substances; Z23 Encounter for immunization
CPT/HCPCS: 36415; 51702; 76815; 80048; 80053; 80306; 81001; 82805; 83735; 85025; 85027; 86706; 86762; 86780; 86850; 86900; 86901; 87340; 90471; 90686; 90715; G0008; J0360; J0461; J0690; J1885; J2274; J2405; J2590; J2765; J3010; J3475; J7070